=== PATIENT | female | born 1985 | race Caucasian/White ===

== ENCOUNTER 2023-05-27 08:00 | Outpatient (CLI) | payer OTHER ==
--- NOTE | 2023-05-27 21:39 | XRAY Report ---
PROCEDURE: Knee 4 View RT INDICATIONS: RIGHT KNEE PAIN TECHNIQUE: 4 views of the knee(s) were acquired. COMPARISON: MRI knee 03/17/2023 FINDINGS: Bones: No fractures or dislocations. No suspicious bony lesions. Questionable minimal medial comp artment narrowing bilaterally. Soft tissues: No knee joint effusion. No suspicious soft tissue calcifications or masses. IMPRESSION: Questionable minimal medial compartment narrowing bilaterally. No erosions or periarticular osteophyt es. Reviewed by: Ana Oakes MD on 05/27/2023 9:38 PM PST Approved by: Ana Oakes MD on 05/27/2023 9:38 PM PST Station ID: [id number]
== END 2023-05-27 23:59 | disposition home or self-care (01) ==
LOC: DI.WOS 08:00
PROVIDERS: ATTEND Physician Assistant Surgical
DX: M25.561 Pain in right knee (principal)